=== PATIENT | female | born 1985 | race Caucasian/White ===

== ENCOUNTER 2020-02-12 09:11 | Outpatient (CLI) | payer BC ==
--- NOTE | 2020-02-12 10:54 | RAD ---
CHEST 2 VIEWS: Date: 02/12/2020 HISTORY: Right-sided chest pain. COMPARISON: None. FINDINGS: Lungs are clear. No pneumothorax or effusion. Cardiac silhouette and mediastinal contours within norm al limits. No acute osseous abnormality. IMPRESSION: No acute intrathoracic abnormality. POS: HOME
== END 2020-02-12 09:12 | disposition home or self-care (01) ==
LOC: BICRAD 09:11
PROVIDERS: ATTEND Physician Assistant
DX: R07.9 Chest pain, unspecified (principal); E55.9 Vitamin D deficiency, unspecified; R42 Dizziness and giddiness
CPT/HCPCS: 36415; 71046; 80053; 82306; 84443; 85025

== ENCOUNTER 2020-06-12 15:21 | Outpatient (CLI) | payer BC ==
--- NOTE | 2020-06-12 15:53 | RAD ---
Exam: 5 views cervical spine HISTORY: Patient with a chiropractor on Monday and is now extremity pain. FINDINGS: Predental space is normal. No prevertebral soft tissue swelling. On the lateral and swimmer's project ion there is persistent straightening of the lordosis. Disc space heights are preserved. There is no evidence of fracture. On the open-mouth projection lateral masses of C1 and C2 articulate appropriately. Limited evaluation of the odontoid process on the base of skull and open-mouth projection On the AP projection, no malalignment. Cervical ribs at C7 are noted. IMPRESSION: No radiographic evidence of fracture. However, there is straightening of cervical lordosi s. If there is concern for ligamentous injury, consider MRI. CODE T
--- NOTE | 2020-06-12 15:58 | RAD ---
Exam: 3 views thoracic spine HISTORY: Pain. Patient recently visited her chiropractor FINDINGS: AP, lateral and swimmer's view of the cervical spine demonstrate 12 thoracic type vertebra. Vertebral body height is maintained. No fracture. Preserved disc space height. No malalignment IMPRESSION: Unremarkable thoracic spine radiograph series.
== END 2020-06-12 15:22 | disposition home or self-care (01) ==
LOC: BICRAD 15:21
PROVIDERS: ATTEND Physician Assistant
DX: M54.2 Cervicalgia (principal); M54.6 Pain in thoracic spine
CPT/HCPCS: 72040; 72072

== ENCOUNTER 2020-11-23 14:48 | Outpatient (CLI) | payer BC | END 2020-11-23 14:49 | disposition home or self-care (01) | LOC: TBSIIMAG 14:48 | PROVIDERS: ATTEND Neurological Surgery | DX: S24.112A Complete lesion at T2-T6 level of thoracic spinal cord, initial encounter (principal); D18.09 Hemangioma of other sites | CPT/HCPCS: 72157 ==

== ENCOUNTER 2020-12-09 14:49 | Outpatient (CLI) | payer BC ==
[2020-12-09 16:33] LABS: Anion Gap 15 mmol/L (10-20); BUN (Urea Nitrogen) 10 mg/dL (7.0-18.7); Chloride 105 mmol/L (98-107); Potassium 3.8 mmol/L (3.5-5.1); Sodium 137 mmol/L (136-145)
[2020-12-09 16:46] LABS: Hemoglobin 14.4 g/dL (12.0-15.5); Mean Corpuscular HGB CONC 34.1 g/dL (32.0-36.0); Mean Corpuscular Hemoglobin 32.2 pg (27.0-33.0); Mean Corpuscular Volume 94.4 fl (81.6-98.3); Platelet Count 183 10x3/uL (150-450); RBC Distribution Width 12.4 % (11.5-14.5); Red Blood Cell (RBC) Count 4.47 10x6/uL (3.90-5.03); White Blood Cell (WBC) Count 7.9 10x3/uL (3.5-10.5)
[2020-12-09 17:26] LABS: Calc. Creatinine Clearance 0 mL/min (70-130); Calcium 9.1 mg/dL (7.8-10.44); Carbon Dioxide 21 mmol/L (22-29); Glucose 132 mg/dL (70-105)
[2020-12-10 01:16] LABS: SARS-CoV-2 PCR by NAA Not Detected (NotDetected)
== END 2020-12-09 14:50 | disposition home or self-care (01) ==
LOC: LABBT 14:49
PROVIDERS: ATTEND Neurological Surgery
DX: Z01.818 Encounter for other preprocedural examination (principal); M54.12 Radiculopathy, cervical region; Z20.822 Contact with and (suspected) exposure to COVID-19
CPT/HCPCS: 80048; 85027; 87635; 93005; 93010; U0003; U0005

== ENCOUNTER 2020-12-14 06:08 | Day surgery (SDC) | payer BC ==
[2020-12-10 12:17] VITALS: BMI 31.8
[2020-12-14] MEDS ORDERED: Fentanyl 100 MCG/2 ML VIAL ONE ×2 (06:33→09:29)
[2020-12-14] MEDS ORDERED: Sodium Chloride 0.9% 10 ML ONE ×3 (06:59→09:09)
[2020-12-14] MEDS ORDERED: Midazolam HCl 2 mg/2 ml Vial ONE (07:46)
[2020-12-14] MEDS ORDERED: Albuterol Sulfate HFA (OR ONLY) ONE (08:00)
[2020-12-14] MEDS ORDERED: SUGAMMADEX SODIUM 500 MG/5 ML VIAL ONE (08:22)
[2020-12-14] MEDS ORDERED: Ketorolac Tromethamine 30 MG/ML VIAL ONE (08:33)
[2020-12-14] MEDS ORDERED: PROPOFOL 200 MG/20 ML VIAL ONE (08:33)
[2020-12-14] MEDS ORDERED: Glycopyrrolate 0.2 MG/ML 5 ML SYRINGE ONE (08:33)
[2020-12-14] MEDS ORDERED: Lidocaine 1% PF 5 ML VIAL ONE (08:33)
[2020-12-14] MEDS ORDERED: Rocuronium Bromide 10 MG/ML (10ML VIAL) ONE (08:33)
[2020-12-14] MEDS ORDERED: Dexamethasone 20 MG/5 ML VIAL ONE (08:33)
[2020-12-14] MEDS ORDERED: Ondansetron PF 4 MG/2 ML Vial ONE (08:33)
[2020-12-14] MEDS ORDERED: Meperidine HCl/PF 25 MG/ML VIAL ONE (10:13)
[2020-12-14] MEDS ORDERED: HYDROcodone/Acetaminophen 5/325 mg Tablet ONE (12:04)
== END 2020-12-14 13:33 | disposition home or self-care (01) ==
LOC: SDC 06:08
PROVIDERS: ATTEND Neurological Surgery
PROC: 0RT30ZZ Resection of Cervical Vertebral Disc, Open Approach (ICD-10-PCS; principal; 2020-12-14)
PROC: 0RG20A0 Fusion of 2 or more Cervical Vertebral Joints with Interbody Fusion Device, Anterior Approach, Anterior Column, Open Approach (ICD-10-PCS; principal; 2020-12-14)
DX: M47.22 Other spondylosis with radiculopathy, cervical region (principal); J45.909 Unspecified asthma, uncomplicated; F17.200 Nicotine dependence, unspecified, uncomplicated; Z79.899 Other long term (current) drug therapy; Z88.2 Allergy status to sulfonamides
CPT/HCPCS: 76000; C1713; C1776; J0690; J1100; J1885; J2175; J2250; J2405; J2704; J3010; J3490; J7620

== ENCOUNTER 2020-12-24 11:09 | Outpatient (CLI) | payer BC | END 2020-12-24 11:10 | disposition home or self-care (01) | LOC: TBSIIMAG 11:09 | PROVIDERS: ATTEND Physician Assistant | DX: M47.812 Spondylosis without myelopathy or radiculopathy, cervical region (principal); Z98.890 Other specified postprocedural states | CPT/HCPCS: 72040 ==

== ENCOUNTER 2022-08-15 11:40 | Outpatient (CLI) | payer BC | END 2022-08-15 11:41 | disposition home or self-care (01) | LOC: BICRAD 11:40 | PROVIDERS: ATTEND Internal Medicine | DX: R07.89 Other chest pain (principal) | CPT/HCPCS: 71046 ==